=== PATIENT | female | born 1980 | race Caucasian/White ===

== ENCOUNTER 2020-06-29 21:05 | Emergency (ER) | payer OTHER ==
[~2020-06-29] VITALS: Ht 167.6 cm; Wt 56.7 kg
[~2020-06-29 21:05] MED LIST: ALBUPOW26; FLUT115A2; NAPR125S6
[2020-06-29 21:23] VITALS: BP 150/97
[2020-06-29] MEDS ORDERED: HYDROcodone-ACET 10/325MG TAB PO ONE (21:45)
[2020-06-29] MEDS ORDERED: TETANUS-DIPTH-ACEL PERTUSSIS 0.5ML SYR Tdap IM ONE (21:45)
[2020-06-29] MEDS ORDERED: cefTRIAXone SOD 1,000 MG VL IM ONE (21:45)
[2020-06-29] MEDS ORDERED: LIDOCAINE 1% HCL (LOCAL ANESTH.) INJ 20ML MDV ONE (21:55)
== END 2020-06-29 23:42 | disposition home or self-care (01) ==
LOC: ER 21:06
DX: S61.304A Unspecified open wound of right ring finger with damage to nail, initial encounter (principal); Z90.710 Acquired absence of both cervix and uterus; X58.XXXA Exposure to other specified factors, initial encounter; Y93.89 Activity, other specified; Y92.89 Other specified places as the place of occurrence of the external cause; Y99.8 Other external cause status
CPT/HCPCS: 73140; 90471; 90715; 96372; 99284; J0696; J2001